=== PATIENT | female | born 2000 | race Two or more races ===

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

== ENCOUNTER 2022-12-20 21:07 | Emergency (ER) | payer BC, OTHER ==
[~2022-12-20] VITALS: Ht 162.6 cm; Wt 68.0 kg
[2022-12-20 21:17] VITALS: BP 128/79
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
== END 2022-12-20 22:14 | disposition home or self-care (01) ==
LOC: ER 21:10
DX: T17.908A Unspecified foreign body in respiratory tract, part unspecified causing other injury, initial encounter (principal); F41.9 Anxiety disorder, unspecified